=== PATIENT | female | born 1960 | race Caucasian/White ===

== ENCOUNTER 2017-08-13 08:31 | Emergency (ER) | payer OTHER, BC ==
[2017-08-13] MEDS ORDERED: Lidocaine 1% 10 ML MDV INJECT ONE (09:48)
[2017-08-13] MEDS ORDERED: Diphtheria,Pertussis(Acell),Tetanus Vaccine 0.5 ML SDV IM ONE (09:49)
[2017-08-13] MEDS ORDERED: Bupivacaine 0.5% 10 ML SDV INJECT ONE (09:49)
--- NOTE | 2017-08-13 11:32 | CR ---
Left fourth finger: Four views of the left fourth finger were obtained. Joint spaces are preserved. No acute fracture or other bony abnormality is identified. Distal soft tissue swelling is noted. Impression: 1. Soft tissue swelling. 2. No acute bony abnormality is identified. Diagnostic code #2
[2017-08-13] MEDS ORDERED: Cephalexin 500 MG Cap PO ONE (12:01)
--- NOTE | 2017-08-13 12:01 | EDM.PDOC ---
ED HPI GENERAL MEDICAL PROBLEM - General Chief Complaint: Laceration Stated Complaint: FINGER LAC Time Seen by Provider: 08/13/17 09:21 Source of Information: Reports: Patient, RN Notes Reviewed History Limitations: Reports: No Limitations - History of Present Illness INITIAL COMMENTS - FREE TEXT/NARRATIVE: The patient states that the end of her left fourth finger got caught in a packing machine around 07:00 this morning, squeezing it to the point of causing the skin to burst. She presents with an irregular laceration to the end of her left fourth finger. She denies any other injury. The patient does not recall when her last tetanus vaccination was. The patient's PCP is her [facility], Dr. Guerra. Left Hand Pain Score (Numeric/FACES): 0 - Related Data Allergies Allergy/AdvReac Type Severity Reaction Status Date / Time No Known Allergies Allergy Verified 08/13/17 08:45 Home Meds: Home Meds Aspirin 81 mg PO DAILY 08/13/17 [History] Cephalexin [Keflex] 500 mg PO Q6HR #20 cap 08/13/17 [Rx] Hydrocodone/Acetaminophen [Verdi 5-325 Tablet] 1 - 2 tab PO Q6H PRN #10 tablet 08/13/17 [Rx] Levothyroxine Sodium 88 mcg PO DAILY 08/13/17 [History] Simvastatin [Zocor] 20 mg PO DAILY 08/13/17 [History] Past Medical History Cardiovascular History: Reports: High Cholesterol Genitourinary History: Reports: Renal Calculus Endocrine/Metabolic History: Reports: Hypothyroidism - Past Surgical History Female Surgical History: Reports: Section (x 1), Lithotripsy/ESWL Social & Family History - Tobacco Use Smoking Status *Q: Never Smoker - Caffeine Use Caffeine Use: Reports: Coffee - Alcohol Use Alcohol Use History: Yes Alcohol Use Frequency: Socially - Recreational Drug Use Recreational Drug Use: No - Living Situation & Occupation Living situation: Reports: , with Spouse 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[employer]) ED ROS GENERAL - Review of Systems Review Of Systems: See Below Constitutional: Reports: No Symptoms HEENT: Reports: No Symptoms Respiratory: Reports: No Symptoms Cardiovascular: Reports: No Symptoms Endocrine: Reports: No Symptoms GI/Abdominal: Reports: No Symptoms : Reports: No Symptoms Musculoskeletal: Reports: No Symptoms Skin: Reports: No Symptoms Neurological: Reports: No Symptoms Psychiatric: Reports: No Symptoms Hematologic/Lymphatic: Reports: No Symptoms Immunologic: Reports: No Symptoms ED EXAM, SKIN/RASH Exam: See Below Exam Limited By: No Limitations General Appearance: Alert, WD/WN, No Apparent Distress Extremities: Other (There is an irregular laceration to the distal aspect of the patient's left fourth finger, extending from the ulnar aspect of the distal and the nail ventrally, coming across the pad of the finger and along the ulnar aspect of the finger, all distal to the DIP joint. Neurovascular status of the finger is intact.) ED SKIN PROCEDURES - Laceration/Wound Repair Left Finger Lac/Wound length In cm: 3 Appearance: Irregular, Clean Distal NVT: Neuro & Vascular Intact, No Tendon Injury Anesthetic Type: Digital Local Anesthesia - Lidocaine (Xylocaine): 1% Plain Local Anesthesia - Bupivicaine (Marcaine): 0.5% Plain Local Anesthetic Volume: 4cc Skin Prep: Providone-Iodine (Betadine) Exploration/Debridement/Repair: Wound Explored, In a Bloodless Field, Explored to Base, No Foreign Material Found, Wound Margins Revised Closed with: Sutures Suture Size: 3-0 # of Sutures: 4 Suture Type: Nylon, Interrupted, Simple Sterile Dressing Applied: Nurse Tetanus Status Addressed: Yes Complications: No Course - Vital Signs Last Recorded V/S: Last Vital Signs Temp 36.6 C 08/13/17 08:43 Pulse 80 08/13/17 12:28 Resp 18 08/13/17 12:28 BP 143/93 H 08/13/17 12:28 Pulse Ox 100 08/13/17 12:28 - Orders/Labs/Meds Meds: Medications Discontinued Medications Generic Name Dose Route Start Last Admin Trade Name Darci PRN Reason Stop Dose Admin Bupivacaine HCl 10 ml 08/13/17 09:49 08/13/17 09:58 Sensorcaine-Mpf 0.5% INJECT 08/13/17 09:50 10 ml ONETIME ONE Administration Cephalexin 500 mg 08/13/17 12:01 08/13/17 12:23 Keflex PO 08/13/17 12:02 500 mg ONETIME ONE Administration Diphtheria/Tetanus/Acell Pertussis 0.5 ml 08/13/17 09:49 08/13/17 09:58 Adacel IM 08/13/17 09:50 0.5 ml .ONCE ONE Administration Lidocaine HCl 10 ml 08/13/17 09:48 08/13/17 09:58 Xylocaine 1% INJECT 08/13/17 09:49 10 ml ONETIME ONE Administration - Re-Assessments/Exams Free Text/Narrative Re-Assessment/Exam: 08/13/17 10:00 4-view radiographs of the left fourth finger appear to be grossly unremarkable, with no acute bony injury, such as fracture or dislocation identified. Formal read per the Radiologist pending. 08/13/17 11:59 The patient's left fourth finger laceration was repaired with 4 sutures. Sterile dressing per the RN. I will start the patient on Keflex, and prescribe a small dose of Verdi. I would like patient to follow-up with Dr. Vang this week - she states that she is leaving town on , 08/16/2017, and will not be back until 08/19/2017. I would like the patient to see Dr. Vang before she leaves, if possible, and can then follow-up with him after she returns. Departure - Departure Time of Disposition: 12:00 Disposition: Home, Self-Care 01 Condition: Good Clinical Impression: Laceration of left ring finger - Discharge Information Prescriptions: Cephalexin [Keflex] 500 mg PO Q6HR #20 cap Hydrocodone/Acetaminophen [Verdi 5-325 Tablet] 1 - 2 tab PO Q6H PRN #10 tablet PRN Reason: Pain (Severe 7-10) Instructions: Laceration Care, Adult Referrals: Deandre Vang MD [Physician] - PCP,Not In Area [Primary Care Provider] - Forms: ED Department Discharge Additional Instructions: You were seen in the emergency room after injuring your left ring finger at work. Workup in the emergency room included x-rays of your left finger. No broken bones were found. You received 4 sutures to your finger. Keep the wound clean with ordinary soap and water when you bathe each day. Pat the wound dry, then apply a clean dry dressing, daily. Do not soak the wound, such as in the bathtub or with swimming. You have been started on the antibiotic Keflex. Take one tablet every 6 hours, as prescribed. Take [id number] ibuprofen 2-3 tablets (400-600 mg) up to every 8 hours, with food, as needed for pain. You may take 1 to 2 tablets of the narcotic pain reliever Verdi up to every 6 hours as needed for pain not relieved by ibuprofen. If you take Verdi, do not drive or operate heavy machinery for 12 hours afterward. Verdi will likely cause constipation, so consider taking a stool softener. Follow-up with the orthopedic surgeon Dr. Vang either Sunday or Sunday this week. If any other problems, please do not hesitate to return to the ER.
[2017-08-13 12:30] VITALS: BP 143/93
== END 2017-08-13 12:28 | disposition home or self-care (01) ==
LOC: JD.ED 08:31
DX: S61.215A Laceration without foreign body of left ring finger without damage to nail, initial encounter (principal); Z79.82 Long term (current) use of aspirin; W23.1XXA Caught, crushed, jammed, or pinched between stationary objects, initial encounter; Z79.899 Other long term (current) drug therapy; E78.00 Pure hypercholesterolemia, unspecified; Z87.442 Personal history of urinary calculi; E03.9 Hypothyroidism, unspecified
CPT/HCPCS: 12002; 73140; 90471; 90715; 99284; A9270; 99283-25